=== PATIENT | female | born 1940 | race Caucasian/White ===

== ENCOUNTER 2017-04-23 19:23 | Emergency (ER) | payer MEDICARE, BC ==
[2017-04-23 20:02] VITALS: TEMP 97.6; O2SAT 94
[2017-04-23 20:09] VITALS: BP 159/78; PULSE 64; RESP 18
== END 2017-04-23 20:07 | disposition home or self-care (01) | DRG 556 ==
LOC: ED 19:23
DX: M79.89 Other specified soft tissue disorders (principal)
CPT/HCPCS: 99282